=== PATIENT | female | born 1950 | race Caucasian/White ===

== ENCOUNTER 2017-03-21 08:43 | Outpatient (CLI) | payer OTHER ==
[~2017-03-21 08:43] MED LIST: ASPIRIN ADULT L81 M1 PO; BACTRIM DS1 TAB PO; CLONIDINE HCL0.1 MG PO; COREG25 MG PO; CYCLOBENZAPRINE5 MG PO; HYDROCHLOROTHIA25 MG PO; LOSARTAN POTAS100 MG PO; METFORMIN HCL850 MG PO; MULTIPLE VITAMIN PO; POTASSIUM CHLO10 ME2 PO; PRAVASTATIN SOD10 MG PO; STINGING NETTLE PO; TRAMADOL HCL50 MG PO; TYLENOL/CODEINE #3 PO; VITAMIN D-31000 UNIT PO
--- NOTE | 2017-03-21 10:21 | DIAGNOSTIC IMAGING REPORT ---
PROCEDURE: US KIDNEY/RENAL COMPLETE INDICATION: STAGE 3 CHRONIC KIDNEY DISEASE TECHNIQUE: Transabdominal scans of the kidneys with calculation of resistive indices. Prevoid and postvoid bladder volumes were obtained. COMPARISON: None. FINDINGS: RIGHT: Kidney measures 9.9 x 5.4 x 4.4 cm with mild cortical thinning. No calculi or hydronephrosis. 3.7 cm upper pole and 3.3 cm lower pole simple cysts. Resistive indices measure 0.78 or less. LEFT: Kidney measures 11 x 5 x 5.5 cm with mild cortical thinning. No calculi or hydronephrosis. 2.5 cm upper pole exophytic simple cyst. Resistive indices measure 0.78 or less. BLADDER: Bilateral ureteral jets visualized. Bladder has a normal appearance. Prevoid bladder volume 40 ml. There is no postvoid residual bladder volume. IMPRESSION: 1. Bilateral renal cysts 2. Mild bilateral renal cortical atrophy 3. Minimally elevated resistive indices bilaterally suggestive of intrinsic renal disease.
== END 2017-03-21 23:00 | disposition home or self-care (01) ==
LOC: US SRH 08:43
DX: N18.3 Chronic kidney disease, stage 3 (moderate) (principal); Q61.02 Congenital multiple renal cysts; N26.1 Atrophy of kidney (terminal)